=== PATIENT | male | born 1985 | race Caucasian/White ===

== ENCOUNTER 2020-03-01 12:12 | Inpatient (IN) | payer OTHER ==
[2020-03-01] MEDS ORDERED: MAGNESIUM HYDROX 2400MG/30ML ORAL SUSPENSION 30 ML CUP PO PRN (16:30)
[2020-03-01] MEDS ORDERED: ACETAMINOPHEN 325 MG TABLET (FP) PO PRN (16:30)
[2020-03-01] MEDS ORDERED: METHADONE HCL 10 MG TABLET (FOR DETOX USE ONLY) PO ONE (16:30)
[2020-03-01] MEDS ORDERED: cloNIDine HCL 0.1 MG TABLET PO PRN (16:30)
[2020-03-01] MEDS ORDERED: MAG HYDROX/AL HYDROX/SIMETH 30 ML UNIT-DOSE CUP PO PRN (16:30)
[2020-03-01] MEDS ORDERED: IBUPROFEN 400 MG TABLET (FP) PO PRN (16:30)
[2020-03-01] MEDS ORDERED: MAGNESIUM CITRATE 300 ML BOTTLE PO PRN (16:30)
[2020-03-01] MEDS ORDERED: ONDANSETRON *ODT* 4 MG TABLET SL PRN (16:30)
[2020-03-01] MEDS ORDERED: MENTHOL/PHENOL 1 EACH UD MM PRN (16:30)
[2020-03-01 16:40] VITALS: BMI 27.8
[2020-03-01] MEDS: diazePAM 5 MG TABLET PO PRN (18:46)
[2020-03-01] MEDS ORDERED: ALBUTEROL SO4 HFA INHALER IH PRN (18:47)
[2020-03-01] MEDS: NICOTINE 21 MG/24 HOURS TOPICAL PATCH TD SCH (18:53)
[2020-03-01] MEDS: hydrOXYzine PAMOATE 25 MG CAPSULE (FP) PO SCH ×2 (18:53→22:17)
[2020-03-01] MEDS: MELATONIN 5 MG TABLETS PO SCH (22:16)
[2020-03-01] MEDS: THIAMINE HCL 100 MG TABLET (FP) PO SCH (22:16)
[2020-03-02] MEDS: hydrOXYzine PAMOATE 25 MG CAPSULE (FP) PO SCH ×5 (06:40→22:07)
[2020-03-02] MEDS ORDERED: METHADONE HCL 5 MG TABLET (FOR DETOX USE ONLY) ONE (08:41)
[2020-03-02] MEDS ORDERED: METHADONE HCL 10 MG TABLET (FOR DETOX USE ONLY) ONE (08:41)
[2020-03-02] MEDS ORDERED: METHADONE (DETOX) 20 MG, METHADONE (DETOX) 5 MG PO ONE (10:00)
[2020-03-02] MEDS: diazePAM 5 MG TABLET PO PRN ×2 (10:02→22:08)
[2020-03-02] MEDS: PRENATAL VITAMINS W/ FOLIC ACID TABLET (FP) PO SCH (10:02)
[2020-03-02] MEDS: PANTOPRAZOLE 20 MG TABLET PO SCH (10:02)
[2020-03-02] MEDS: NICOTINE 21 MG/24 HOURS TOPICAL PATCH TD SCH (10:03)
[2020-03-02] MEDS: NICOTINE POLACRILEX 2 MG GUM BUC PRN (10:05)
[2020-03-02 10:38] LABS: HEMATOCRIT 39.1 % (35.4-49); HEMOGLOBIN 13.2 GM/dL (11.7-16.9); MCHC 33.8 g/dl (32.0-35.9); MEAN CELL VOLUME 94.6 fl (80-96); MEAN PLT VOLUME 7.9 fl (7.5-11.1); PLATELET COUNT 215 K/MM3 (134-434); RBC 4.13 M/mm3 (4.00-5.60); WHITE BLOOD COUNT 9.3 K/mm3 (4.0-10.0)
[2020-03-02 10:47] LABS: POTASSIUM 3.1 mmol/L (3.5-5.1)
[2020-03-02 10:52] LABS: CALCIUM 9.2 mg/dL (8.5-10.1)
[2020-03-02 10:53] LABS: ALBUMIN 3.8 g/dl (3.4-5.0)
[2020-03-02 10:54] LABS: BLOOD UREA NITROGEN 8.3 mg/dL (7-18)
[2020-03-02 10:56] LABS: CREATININE 0.9 mg/dL (0.55-1.3)
[2020-03-02 10:58] LABS: BILIRUBIN,TOTAL 0.8 mg/dL (0.2-1); TOT PROT 6.8 g/dl (6.4-8.2)
[2020-03-02] MEDS ORDERED: POTASSIUM CHLORIDE ORAL LIQUID 20 MEQ/15 ML PO ONE ×2 (11:30→15:30)
[2020-03-02] MEDS: BISMUTH SUBSALICYLATE 524 MG/30 ML UD PO PRN (17:13)
[2020-03-02] MEDS: METHOCARBAMOL 500 MG TABLET PO PRN (18:09)
[2020-03-02] MEDS: ACETAMINOPHEN 325 MG TABLET (FP) PO PRN (18:10)
[2020-03-02] MEDS: MELATONIN 5 MG TABLETS PO SCH (22:07)
[2020-03-02] MEDS: THIAMINE HCL 100 MG TABLET (FP) PO SCH (22:41)
[2020-03-03] MEDS: hydrOXYzine PAMOATE 25 MG CAPSULE (FP) PO SCH (06:09)
[2020-03-03] MEDS ORDERED: METHADONE HCL 10 MG TABLET (FOR DETOX USE ONLY) PO ONE (10:00)
[2020-03-03] MEDS: NICOTINE 21 MG/24 HOURS TOPICAL PATCH TD SCH (10:13)
[2020-03-03] MEDS: PANTOPRAZOLE 20 MG TABLET PO SCH (10:14)
[2020-03-03] MEDS: PRENATAL VITAMINS W/ FOLIC ACID TABLET (FP) PO SCH (10:14)
[2020-03-03] MEDS: hydrOXYzine PAMOATE 50 MG CAPSULE (FP) PO SCH ×4 (10:16→22:09)
[2020-03-03] MEDS: BISMUTH SUBSALICYLATE 524 MG/30 ML UD PO PRN (10:24)
[2020-03-03] MEDS: ACETAMINOPHEN 325 MG TABLET (FP) PO PRN (10:25)
[2020-03-03] MEDS: METHOCARBAMOL 500 MG TABLET PO PRN (15:07)
[2020-03-03] MEDS: diazePAM 5 MG TABLET PO PRN (17:45)
[2020-03-03] MEDS: THIAMINE HCL 100 MG TABLET (FP) PO SCH (22:08)
[2020-03-03] MEDS: MELATONIN 5 MG TABLETS PO SCH (22:08)
[2020-03-04] MEDS: hydrOXYzine PAMOATE 50 MG CAPSULE (FP) PO SCH ×4 (04:00→13:23)
[2020-03-04] MEDS ORDERED: METHADONE (DETOX) 10 MG, METHADONE (DETOX) 5 MG PO ONE (10:00)
[2020-03-04] MEDS ORDERED: METHADONE HCL 10 MG TABLET (FOR DETOX USE ONLY) PO ONE (10:13)
[2020-03-04] MEDS: NICOTINE 21 MG/24 HOURS TOPICAL PATCH TD SCH (10:21)
[2020-03-04] MEDS: PRENATAL VITAMINS W/ FOLIC ACID TABLET (FP) PO SCH (10:21)
[2020-03-04] MEDS: PANTOPRAZOLE 20 MG TABLET PO SCH (10:21)
[2020-03-04] MEDS: NICOTINE POLACRILEX 2 MG GUM BUC PRN (10:27)
[2020-03-04] MEDS: ACETAMINOPHEN 325 MG TABLET (FP) PO PRN (13:23)
[2020-03-04] MEDS: METHOCARBAMOL 500 MG TABLET PO PRN (13:24)
[2020-03-04 13:27] VITALS: BP 127/84; PULSE 88; TEMP 97.8
[2020-03-05] MEDS ORDERED: METHADONE HCL 5 MG TABLET (FOR DETOX USE ONLY) PO ONE (05:00)
[2020-03-05] MEDS ORDERED: METHADONE HCL 10 MG TABLET (FOR DETOX USE ONLY) PO ONE (10:00)
[2020-03-06] MEDS ORDERED: METHADONE HCL 5 MG TABLET (FOR DETOX USE ONLY) PO ONE (06:00)
== END 2020-03-04 17:02 | disposition home or self-care (01) | DRG 773 ==
LOC: YASAS 12:12 → Y3N 17:36
PROVIDERS: ADMIT Allergy & Immunology; ATTEND Allergy & Immunology
PROC: HZ2ZZZZ Detoxification Services for Substance Abuse Treatment (ICD-10-PCS; principal; 2020-03-01)
DX: F11.23 Opioid dependence with withdrawal (principal); F17.213 Nicotine dependence, cigarettes, with withdrawal; F19.24 Other psychoactive substance dependence with psychoactive substance-induced mood disorder; R73.09 Other abnormal glucose; E87.6 Hypokalemia; M51.27 Other intervertebral disc displacement, lumbosacral region; M41.9 Scoliosis, unspecified; K21.9 Gastro-esophageal reflux disease without esophagitis; Z91.010 Allergy to peanuts
CPT/HCPCS: 36415; 80053; 82962; 84132; 85027; 86780; 93005; 93010; C9803; U0003